=== PATIENT | female | born 1985 | race Two or more races ===

== ENCOUNTER 2023-11-08 11:19 | Emergency (ER) | payer OTHER ==
[~2023-11-08] VITALS: Ht 167.6 cm; Wt 70.3 kg
[2023-11-08] MEDS ORDERED: KETOROLAC TROMETHAMINE 60 MG VIAL IM ONE ×2 (13:57→14:00)
[2023-11-08] MEDS ORDERED: IBU800 MG PO (17:22)
== END 2023-11-08 18:03 | disposition home or self-care (01) ==
LOC: ER 11:19
DX: S93.401A Sprain of unspecified ligament of right ankle, initial encounter (principal); W18.39XA Other fall on same level, initial encounter; Y93.89 Activity, other specified; Y92.89 Other specified places as the place of occurrence of the external cause; Y99.9 Unspecified external cause status; M20.11 Hallux valgus (acquired), right foot; Z91.018 Allergy to other foods